=== PATIENT | female | born 1995 | race Caucasian/White ===

== ENCOUNTER 2025-09-04 09:46 | Emergency (ER) | payer SELFPAY ==
[~2025-09-04] VITALS: Ht 165.1 cm; Wt 77.1 kg
[2025-09-04] MEDS ORDERED: DOXYCYCLINE HY100 M3 PO (11:14)
[2025-09-04] MEDS ORDERED: CEPHALEXIN500 MG PO (11:14)
[2025-09-04 11:32] VITALS: PULSE 88; RESP 16; TEMP 98.2; O2SAT 100
[2025-09-04] MEDS: ACETAMINOPHEN 325 MG TAB PO ONE (11:32)
== END 2025-09-04 11:32 | disposition home or self-care (01) ==
LOC: ER 10:27
DX: L03.114 Cellulitis of left upper limb (principal); L03.113 Cellulitis of right upper limb; D64.9 Anemia, unspecified
CPT/HCPCS: 99282